=== PATIENT | female | born 1990 | race African-American/Black ===

== ENCOUNTER 2018-07-15 09:50 | Emergency (ER) | payer OTHER ==
[2018-07-15 10:46] VITALS: BP 104/67
--- NOTE | 2018-07-15 11:28 | UC ---
Complaint Female HPI - HPI Summary HPI Summary: Pt c/o sudden on set of urinary frequency, urgency and noticing BRB on toilet paper after "wiping" after voiding. SX began 2 days ago - History Of Current Complaint Chief Complaint: UCGU Stated Complaint: BLOOD IN URINE Time Seen by Provider: 07/15/18 11:16 Hx Obtained From: Patient Hx Last Menstrual Period: ABLATION ?: No Onset/Duration: Sudden Onset, Lasting Days Timing: Intermittent Severity Initially: Mild Severity Currently: Mild Pain Intensity: 0 Character: Dull, Burning Aggravating Factor(s): Urination Associated Signs And Symptoms: Positive: Negative - Risk Factors Ectopic Risk Factor: Prior Pelvic Surgery Ovarian Torsion Risk Factor: Reproductive Age - Allergies/Home Medications Allergies/Adverse Reactions: Allergies Allergy/AdvReac Type Severity Reaction Status Date / Time orange Allergy Anaphylatic Verified 07/15/18 10:43 Shock orange (food color) Allergy Anaphylatic Verified 07/15/18 10:43 Shock PMH/Surg Hx/FS Hx/Imm Hx Previously Healthy: Yes - Surgical History Surgical History: Yes Surgery Procedure, Year, and Place: ABL[place]. TUBAL LIGATION - Family History Known Family History: Positive: Cardiac Disease - Social History Occupation: Employed Full-time Lives: With Family Alcohol Use: None Substance Use Type: None Smoking Status (MU): Never Smoked Tobacco Have You Smoked in the Last Year: No Review of Systems All Other Systems Reviewed And Are Negative: Yes Constitutional: Positive: Fatigue Skin: Positive: Negative Eyes: Positive: Negative ENT: Positive: Negative Respiratory: Positive: Negative Cardiovascular: Positive: Negative Gastrointestinal: Positive: Abdominal Pain - suprapubic Genitourinary: Positive: Dysuria, Hematuria, Frequency, Urgency Motor: Positive: Negative Neurovascular: Positive: Negative Musculoskeletal: Positive: Negative Neurological: Positive: Negative Psychological: Positive: Negative Is Patient Immunocompromised?: No Physical Exam Triage Information Reviewed: Yes Appearance: Well-Appearing Vital Signs: Initial Vital Signs Temp 98 F 07/15/18 10:42 Pulse 61 07/15/18 10:42 Resp 15 07/15/18 10:42 BP 104/67 07/15/18 10:42 Pulse Ox 100 07/15/18 10:42 Vital Signs Reviewed: Yes Eye Exam: Normal ENT Exam: Normal Dental Exam: Normal Neck exam: Normal Respiratory Exam: Normal Cardiovascular Exam: Normal Abdomen Description: Positive: Other: - suprapubic tenderness Musculoskeletal Exam: Normal Neurological Exam: Normal Psychological Exam: Normal Skin Exam: Normal Complaint Female Dx - Differential Dx/Diagnosis Differential Diagnosis/HQI/PQRI: Urinary Tract Infection Provider Diagnosis: Hematuria, UTI (urinary tract infection) Discharge - Sign-Out/Discharge Documenting (check all that apply): Patient Departure All imaging exams completed and their final reports reviewed: No Studies - Discharge Plan Condition: Stable Disposition: HOME Prescriptions: Cephalexin CAP* [Keflex 500 CAP*] 500 mg PO Q8H #21 cap Patient Education Materials: Urinary Tract Infection in Women (ED), Hematuria ( ED) Referrals: [facility] [Outside] - As Soon As Possible No Primary Care Phys,NOPCP [Primary Care Provider] - - Billing Disposition and Condition Condition: STABLE Disposition: Home - Attestation Statements Provider Attestation: Per institutional requirements, I have reviewed the chart, however, I was not consulted specifically or made aware of this patient by the midlevel provider. I did not personally evaluate, interact with , or disposition this patient.
--- NOTE | 2018-07-17 07:10 | UC ---
- Progress Note Progress Note: urine final - no growth Call pt - if improved,continue abx if no improvement - should see PCP Course/Dx - Diagnoses Provider Diagnoses: Hematuria, UTI (urinary tract infection) Discharge - Sign-Out/Discharge Documenting (check all that apply): Post-Discharge Follow Up All imaging exams completed and their final reports reviewed: No Studies - Discharge Plan Condition: Stable Disposition: HOME Prescriptions: Cephalexin CAP* [Keflex 500 CAP*] 500 mg PO Q8H #21 cap Patient Education Materials: Urinary Tract Infection in Women (ED), Hematuria ( ED) Referrals: [facility] [Outside] - As Soon As Possible No Primary Care Phys,NOPCP [Primary Care Provider] - - Billing Disposition and Condition Condition: STABLE Disposition: Home
== END 2018-07-15 11:34 | disposition home or self-care (01) ==
LOC: UCCORT 09:50
DX: N39.0 Urinary tract infection, site not specified (principal); R31.9 Hematuria, unspecified
CPT/HCPCS: 81003; 87086; 99212; G0463

== ENCOUNTER 2018-09-17 08:47 | Emergency (ER) | payer OTHER ==
[2018-09-17 09:29] VITALS: BP 100/73
[2018-09-17 09:55] LABS: Influenza A Molecular POSITIVE (Negative)
--- NOTE | 2018-09-17 10:28 | UC ---
FLU HPI - HPI Summary HPI Summary: ONSET TWO DAYS AGO WITH CHILLS, BODYACHES. FEVER 103 TWO NIGHTS AGO. NAUSEA . NO VOMITING IN TWO DAYS. LEFT BACK PAIN. RUNNY NOSE AND COUGH.SINUS PAIN. [ End ] - History of Current Complaint Chief Complaint: UCRespiratory Stated Complaint: SINUSES/EAR Time Seen by Provider: 09/17/18 09:41 Hx Obtained From: Patient Hx Last Menstrual Period: UTERINE ABLATION/TUBAL LIGATION ?: No Onset/Duration: Sudden Onset, Lasting Days Severity Currently: Moderate Severity Initially: Severe Pain Intensity: 8 - Allergy/Home Medications Allergies/Adverse Reactions: Allergies Allergy/AdvReac Type Severity Reaction Status Date / Time orange Allergy Anaphylatic Verified 09/17/18 09:19 Shock orange (food color) Allergy Anaphylatic Verified 09/17/18 09:19 Shock cbd oil Allergy Severe hives, Uncoded 09/17/18 09:19 jason swelling. Home Medications: Home Medications Aspirin/Acetaminophen/Caffeine [Excedrin Extra Strength Caplet] 2 each PO PRN [History] PMH/Surg Hx/FS Hx/Imm Hx Previously Healthy: Yes - Surgical History Surgical History: Yes Surgery Procedure, Year, and Place: [place]. TUBAL LIGATION - Family History Known Family History: Positive: Cardiac Disease - Social History Alcohol Use: None Substance Use Type: None Smoking Status (MU): Never Smoked Tobacco Have You Smoked in the Last Year: No Review of Systems All Other Systems Reviewed And Are Negative: Yes Constitutional: Positive: Fever, Fatigue Skin: Positive: Negative Eyes: Positive: Negative ENT: Positive: Sore Throat, Ear Ache, Nasal Discharge, Sinus Congestion Respiratory: Positive: Cough Cardiovascular: Positive: Negative Gastrointestinal: Positive: Negative Genitourinary: Positive: Negative Motor: Positive: Negative Neurovascular: Positive: Negative Musculoskeletal: Positive: Myalgia Neurological: Positive: Headache Psychological: Positive: Negative Is Patient Immunocompromised?: No Physical Exam Triage Information Reviewed: Yes Appearance: Well-Nourished, Ill-Appearing, Pain Distress Vital Signs: Initial Vital Signs Temp 99.3 F 09/17/18 09:22 Pulse 114 09/17/18 09:22 Resp 20 09/17/18 09:22 BP 100/73 09/17/18 09:22 Pulse Ox 97 09/17/18 09:22 Eye Exam: Normal ENT: Positive: Pharyngeal erythema, TMs normal Dental Exam: Normal Neck exam: Normal Neck: Positive: Supple, Nontender, No Lymphadenopathy Respiratory Exam: Normal Respiratory: Positive: Chest non-tender, Lungs clear, Normal breath sounds, Other: - cough present Cardiovascular: Positive: No Murmur, Pulses Normal, Tachycardia Abdominal Exam: Normal Abdomen Description: Positive: Nontender, No Organomegaly, Soft Bowel Sounds: Positive: Present Musculoskeletal Exam: Normal Neurological Exam: Normal Psychological Exam: Normal Skin Exam: Normal Flu Course/Dx - Course Course Of Treatment: hx obtained,exam performed ,meds reviewed, treated for Positive Influenza a - Differential Dx/Diagnosis Differential Diagnosis/HQI/PQRI: Influenza Provider Diagnosis: Influenza A Discharge - Sign-Out/Discharge Documenting (check all that apply): Patient Departure All imaging exams completed and their final reports reviewed: No Studies - Discharge Plan Condition: Stable Disposition: HOME Prescriptions: Oseltamivir CAP* [Tamiflu CAP*] 75 mg PO BID #10 cap Patient Education Materials: Influenza (ED) Forms: *Work Release Referrals: No Primary Care Phys,NOPCP [Primary Care Provider] - Additional Instructions: 1. Use the medication as prescribed. 2. Get peltny of rest and fluids 3. FOllow up if you develop any acute respiratory distress in the ER. - Billing Disposition and Condition Condition: STABLE Disposition: Home
== END 2018-09-17 10:28 | disposition home or self-care (01) ==
LOC: UCCORT 08:47
DX: J10.1 Influenza due to other identified influenza virus with other respiratory manifestations (principal); Z91.018 Allergy to other foods; Z91.02 Food additives allergy status; Z79.82 Long term (current) use of aspirin
CPT/HCPCS: 99212; G0463

== ENCOUNTER 2018-09-18 09:36 | Emergency (ER) | payer OTHER ==
[2018-09-18 09:59] VITALS: BP 105/75
--- NOTE | 2018-09-18 10:53 | ED ---
Throat Pain/Nasal Congestion - HPI Summary HPI Summary: 27 yr old female with positive influenza A test yesterday morning, started on tamiflu. She woke last evening and found her lower lip to be swollen, painful and then she developed a blister on the lower lip. She popped the blister with alcohol pad and it was filled with clear fluid. She denies prior cold sores or herpes. The patient has no tongue swelling, no SOB, no rash anywhere. No throat tightness. No change in voice. - History of Current Complaint Chief Complaint: UCSkin Time Seen by Provider: 09/18/18 10:18 - Allergies/Home Medications Allergies/Adverse Reactions: Allergies Allergy/AdvReac Type Severity Reaction Status Date / Time orange Allergy Anaphylatic Verified 09/18/18 09:59 Shock orange (food color) Allergy Anaphylatic Verified 09/18/18 09:59 Shock cbd oil Allergy Severe hives, Uncoded 09/18/18 09:59 jason swelling. PMH/Surg Hx/FS Hx/Imm Hx - Surgical History Surgery Procedure, Year, and Place: A[place]. TUBAL LIGATION Infectious Disease History: No Infectious Disease History: Denies: Traveled Outside the [place] in Last 30 Days - Family History Known Family History: Positive: Cardiac Disease - Social History Occupation: Employed Full-time Lives: With Family Alcohol Use: None Substance Use Type: Reports: None Smoking Status (MU): Never Smoked Tobacco Have You Smoked in the Last Year: No Review of Systems Positive: Nasal Discharge Positive: Cough Positive: Other - painful blister lower lip. All Other Systems Reviewed And Are Negative: Yes Physical Exam Triage Information Reviewed: Yes Vital Signs On Initial Exam: Initial Vitals Temp Pulse Resp BP Pulse Ox 98.4 F 93 16 105/75 99 09/18/18 09:55 09/18/18 09:55 09/18/18 09:55 09/18/18 09:55 09/18/18 09:55 Vital Signs Reviewed: Yes Appearance: Positive: Well-Appearing, No Pain Distress Skin: Positive: Warm, Skin Color Reflects Adequate Perfusion, Other - no hives. Painful lower lip ulcer red base and blister no longer present as she has popped. Head/Face: Positive: Normal Head/Face Inspection Eyes: Positive: EOMI ENT: Positive: Pharynx normal, Other - lower lip with STS and an ulcer with erythema lower lip mostly to the left side. She has no fluctuance.. Negative: Trismus, Muffled voice, Hoarse voice Neck: Positive: Nontender, No Lymphadenopathy Respiratory/Lung Sounds: Positive: Clear to Auscultation, Breath Sounds Present Cardiovascular: Positive: RRR. Negative: Murmur Abdomen Description: Negative: Distended Musculoskeletal: Positive: Strength/ROM Intact Neurological: Positive: Sensory/Motor Intact, Alert, Oriented to Person Place, Time, CN Intact II-III Psychiatric: Positive: Normal Diagnostics - Vital Signs Vital Signs Temp Pulse Resp BP Pulse Ox 09/18/18 09:55 98.4 F 93 16 105/75 99 - Laboratory Lab Statement: Any lab studies that have been ordered have been reviewed, and results considered in the medical decision making process. EENT Course/Dx - Course Course Of Treatment: 27 yr old with likely herpes labialis outbreak. Painful blister with red base. May be primary infection. She is concerned that the Tamiflu may have caused this. Will DC tamiflu, and start valtrex. - Diagnoses Provider Diagnoses: Cold sore Discharge - Sign-Out/Discharge Documenting (check all that apply): Patient Departure All imaging exams completed and their final reports reviewed: No Studies - Discharge Plan Condition: Good Disposition: HOME Prescriptions: ValACYclovir (*) [Valtrex 1 GM(*)] 1 gm PO TID #21 tab Patient Education Materials: Oral Herpes Simplex Virus Infections (ED) Referrals: No Primary Care Phys,NOPCP [Primary Care Provider] - [facility] [Outside] - Billing Disposition and Condition Condition: GOOD Disposition: Home
== END 2018-09-18 11:13 | disposition home or self-care (01) ==
LOC: UCCORT 09:36
DX: K13.0 Diseases of lips (principal); J10.1 Influenza due to other identified influenza virus with other respiratory manifestations; Z79.899 Other long term (current) drug therapy; Z91.018 Allergy to other foods; Z91.02 Food additives allergy status
CPT/HCPCS: 99212; G0463